=== PATIENT | female | born 1950 | race Two or more races ===

== ENCOUNTER 2024-01-07 06:37 | Emergency (ER) | payer OTHER ==
[~2024-01-07] VITALS: Ht 162.6 cm; Wt 77.1 kg
[2024-01-07] MEDS ORDERED: COZAAR25 MG PO (06:40)
[2024-01-07] MEDS ORDERED: KETOROLAC TROMETHAMINE 60 MG VIAL IM STA (08:59)
== END 2024-01-07 12:54 | disposition home or self-care (01) ==
LOC: ER 06:38
DX: S62.102A Fracture of unspecified carpal bone, left wrist, initial encounter for closed fracture (principal); W19.XXXA Unspecified fall, initial encounter; Y93.89 Activity, other specified; Y92.89 Other specified places as the place of occurrence of the external cause; Y99.8 Other external cause status; E03.8 Other specified hypothyroidism
CPT/HCPCS: 29125; 73110; 96372; 99283; J1885